=== PATIENT | male | born 2005 | race Caucasian/White ===

== ENCOUNTER 2025-04-03 22:04 | Emergency (ER) | payer BC ==
[2025-04-03 22:56] LABS: #Basophils 0.04 10x3/uL (0.0-0.2); #Eosinophils 0.23 10x3/uL (0.0-0.7); #Monocytes 0.66 10x3/uL (0.11-0.59); #Neutrophils 5.80 10x3/uL (1.40-6.50); %Basophils 0.4 % (0.0-1.0); %Eosinophils 2.5 % (0.0-10.0); %Lymphocytes 26.9 % (21.0-51.0); %Monocytes 7.2 % (0.0-10.0); %Neutrophils 62.8 % (42.0-75.0); Hematocrit 40.0 % (42.0-52.0); Hemoglobin 14.0 g/dL (14.0-18.0); Mean Corpuscular Hemoglobin 30.5 pg (27.0-31.0); Mean Corpuscular Volume 87.1 fL (78.0-98.0); Platelet Count 176 10x3/uL (130-400); Red Blood Cell (RBC) Count 4.59 mill/uL (4.70-6.10); White Blood Cell (WBC) Count 9.23 10x3/uL (4.8-10.8)
[2025-04-03 23:17] LABS: ALT (SGPT) 22 U/L (Less than 45); AST (SGOT) 34 U/L (11-34); Albumin 4.6 g/dL (3.1-4.5); Alkaline Phosphatase 69 U/L (40-110); Anion Gap 17 mmol/L (10-20); BUN (Urea Nitrogen) 24 mg/dL (8.9-20.6); Bilirubin, Total 1.5 mg/dL (0.3-1.2); Calc. Creatinine Clearance 0 mL/min (70-130); Calcium 9.2 mg/dL (7.8-10.44); Carbon Dioxide 20 mmol/L (22-29); Chloride 108 mmol/L (98-107); Globulin 2.6 g/dL (2.4-3.5); Glucose 83 mg/dL (70-105); Potassium 3.8 mmol/L (3.5-5.1); Sodium 141 mmol/L (136-145)
== END 2025-04-03 23:00 | disposition home or self-care (01) ==
LOC: ERS 22:04
DX: L03.115 Cellulitis of right lower limb (principal)
CPT/HCPCS: 36415; 80053; 85025; 86141; 99283